=== PATIENT | male | born 1995 | race Caucasian/White ===

== ENCOUNTER 2017-08-17 23:54 | Emergency (ER) | payer BC ==
[2017-08-18] MEDS ORDERED: KETOROLAC 30 MG/ML VIAL (J1885) As Ordered (01:29)
[2017-08-18] MEDS: NORCO 5/325MG TABLET (BULK FOR ED) PO (01:40)
[2017-08-18] MEDS: KETOROLAC 60 MG/2 ML VIAL (J1885) IM (01:41)
== END 2017-08-18 02:15 | disposition home or self-care (01) ==
LOC: M ED 23:54
DX: S30.0XXA Contusion of lower back and pelvis, initial encounter (principal); W19.XXXA Unspecified fall, initial encounter; Y92.89 Other specified places as the place of occurrence of the external cause; Y93.22 Activity, ice hockey
CPT/HCPCS: J1885